=== PATIENT | female | born 1980 | race Caucasian/White ===

== ENCOUNTER 2018-12-27 17:30 | Emergency (ER) | payer OTHER ==
[~2018-12-27] VITALS: Ht 157.5 cm; Wt 74.8 kg
[~2018-12-27 17:30] MED LIST: BENTYL10 MG/1 ML; CIPRO500 MG; FLAGYL500MG; LEVSIN0.125 MG
== END 2018-12-27 20:44 | disposition home or self-care (01) ==
LOC: ER 17:30
DX: K58.9 Irritable bowel syndrome, unspecified (principal)